=== PATIENT | male | born 1945 | race Caucasian/White ===

== ENCOUNTER 2017-11-05 07:04 | Day surgery (SDC) | payer OTHER ==
[~2017-11-05 07:04] MED LIST: DIAZEPAM 5 MG TAB PO; DIPHENHYDRAMINE 50 MG CAP PO; FAMOTIDINE 20 MG TAB PO; SOD CHLORIDE 0.45% 1,000 ML IV
[2017-11-05] MEDS ORDERED: VERAPAMIL 5 MG INJ (08:16)
[2017-11-05] MEDS ORDERED: IODIXANOL LOCM 100 ML BTL (08:16)
[2017-11-05] MEDS ORDERED: NITROGLYCERIN (IC) 100 MCG/ML INJ (08:16)
[2017-11-05] MEDS ORDERED: HEPARIN 1000 UNITS/ML 10 ML INJ (08:16)
[2017-11-05 08:17] LABS: ADD MAN DIFF? NO
[2017-11-05 08:30] LABS: WHITE BLOOD COUNT 8.5 10^3/ul (4.8-10.8)
[2017-11-05 08:30] LABS: BASOPHIL # 0.1 10^3/ul (0.0-0.1); BASOPHILS % 0.7 % (0.0-2.0); EOSINOPHILS # 0.3 10^3/ul (0.0-0.5); EOSINOPHILS % 3.1 % (0.0-7.0); LYMPHOCYTES # 3.8 10^3/ul (0.8-2.9); MEAN CORPUSCULAR HEMOGLOBIN 32.1 pg (29.0-33.0); MEAN CORPUSCULAR HGB CONC 34.1 g/dl (32.0-37.0); MEAN PLATELET VOLUME 10.7 fl (7.4-10.4); MONOCYTE # 0.8 10^3/ul (0.3-0.9); MONOCYTES % 9.9 % (0.0-11.0); NEUTROPHIL # 3.5 10^3/ul (1.6-7.5); NEUTROPHILS % 41.1 % (39.0-77.0); PLATELET COUNT 193 10^3/UL (140-415); RED BLOOD COUNT 4.36 10^6/ul (4.70-6.10); RED CELL DISTRIBUTION WIDTH 12.2 % (11.5-14.5)
[2017-11-05 08:43] LABS: INR 1.04; PROTIME 13.7 Sec (11.9-14.9); PT RATIO 1.1
[2017-11-05 08:44] LABS: PARTIAL THROMBOPLASTIN TIME 33.9 Sec (25.0-35.0)
[2017-11-05 08:48] LABS: ALANINE AMINOTRANSFERASE 48 IU/L (13-69); ALBUMIN 4.2 g/dl (3.3-4.9); ALBUMIN/GLOBULIN RATIO 1.27; ALKALINE PHOSPHATASE 49 IU/L (42-121); ANION GAP 17 (8-16); ASPARTATE AMINO TRANSFERASE 36 IU/L (15-46); BILIRUBIN,INDIRECT 0.4 mg/dl (0-1.1); BILIRUBIN,TOTAL 0.4 mg/dl (0.2-1.3); CARBON DIOXIDE 27 mmol/L (21-31); CHLORIDE 108 mmol/L (97-110); CHOL/HDL RATIO 2.8 RATIO; CHOLESTEROL 119 mg/dl (100-200); GLUCOSE 101 mg/dl (70-220); HDL CHOLESTEROL 42 mg/dl (31-75); LDL CHOLESTEROL,CALCULATED 59 mg/dl; TOTAL PROTEIN 7.5 g/dl (6.1-8.1); TRIGLYCERIDES 89 mg/dl (0-149)
[2017-11-05 08:49] LABS: BLOOD UREA NITROGEN 23 mg/dl (7-20); CALCIUM 9.3 mg/dl (8.4-10.2); CREATININE 1.11 mg/dl (0.61-1.24); POTASSIUM 4.5 mmol/L (3.5-5.1)
[2017-11-05 08:50] LABS: SODIUM 147 mmol/L (135-144)
[2017-11-05] MEDS ORDERED: FENTAnyl 50 MCG/ML VIAL (08:55)
[2017-11-05] MEDS ORDERED: MIDAZOLAM 1 MG/ML 2 ML INJ (08:55)
[2017-11-05] MEDS ORDERED: SOD CHLORIDE 0.9% 1,000 ML IV (10:23)
[2017-11-05] MEDS ORDERED: AL HYDROX/MG HYDROX/SIMETH 30 ML CUP PO (10:30)
[2017-11-05] MEDS ORDERED: ACETAMINOPHEN 325 MG TAB PO (10:30)
[2017-11-05] MEDS ORDERED: morphine 2 MG INJ IV (10:30)
[2017-11-05] MEDS ORDERED: ONDANSETRON 4 MG INJ IV (10:30)
== END 2017-11-05 15:00 | disposition home or self-care (01) ==
LOC: SDS 07:04
DX: I25.10 Atherosclerotic heart disease of native coronary artery without angina pectoris (principal); I10 Essential (primary) hypertension; E78.5 Hyperlipidemia, unspecified; R94.39 Abnormal result of other cardiovascular function study; Z95.1 Presence of aortocoronary bypass graft
CPT/HCPCS: 71045; 80053; 80061; 85025; 85610; 85730; 93005; 93459